=== PATIENT | female | born 1960 | race Caucasian/White ===

== ENCOUNTER → 2024-04-04 12:34 | Outpatient (REF) | payer BC, SELFPAY | LOC: WDC 12:34 | PROVIDERS: ATTENDING PHYSICIAN Physician Assistant Medical | DX: Z12.31 Encounter for screening mammogram for malignant neoplasm of breast (principal); Z78.0 Asymptomatic menopausal state | CPT/HCPCS: 77063; 77067 ==

== ENCOUNTER 2024-09-12 08:11 | Emergency (ER) | payer BC, SELFPAY ==
[2024-09-12 08:12] VITALS: BP 172/83
--- NOTE | 2024-09-12 08:49 | ED.GENMED ---
History of Present Illness
General
Chief Complaint: Musculo-Skeletal Complaint
Time Seen by Provider: 09/12/24 08:18
History of Present Illness
History of Present Illness:
64-year-old female with history of hypertension presenting to the emergency department with left ankle pain. Patient reports last evening she got up off of the couch and twisted her ankle, felt a pop. She has since had swelling of the lateral
aspect with pain. She has been able to bear weight. Denies numbness or tingling. Denies any additional injury. Has been taking ibuprofen. Denies additional acute medical complaints
Past History
Past History
ED Past Medical History: None
ED Past Surgical History: None
Social History
Tobacco: Non-smoker
Personal:
Living: with family
Employment: Employed
Phy Exam
Physical Exam
Physical Exam:
General: Well-appearing, no clinical signs of dehydration, nontoxic and in no acute distress
HEENT: protecting airway
Neck: appears supple
CV: Normal heart rate
Resp: No accessory muscle use, no increased work of breathing
Abd: no distension
Extremities: No obvious deformity to the left ankle with moderate swelling to the left malleoli with tenderness to palpation. Range of motion grossly intact. Distal sensation and pulses intact. No erythema or warmth.
Neuro: alert, no focal neurologic deficit
: deferred
Rectal: deferred
Psych: Normal affect
Skin: Intact
Course
Orders/Labs/Results
Orders:
Orders
09/12/24 08:15
CR Ankle - Left Min 3 Views Urgent
Comment:
Reason For Exam: injury
Vital Signs
Initial and Last Documented VS:
Initial Vital Signs
Temp Pulse Resp BP Pulse Ox
99.2 F 100 16 172/83 97
09/12/24 08:12 09/12/24 08:12 09/12/24 08:12 09/12/24 08:12 09/12/24 08:12
Last Documented Vital Signs
Temp Pulse Resp BP Pulse Ox
99.2 F 100 16 172/83 97
09/12/24 08:12 09/12/24 08:12 09/12/24 08:12 09/12/24 08:12 09/12/24 08:12
MDM/Problems Addressed
MDM/Problems Addressed:
64-year-old female with history of hypertension presenting to the emergency department for left ankle pain after rolling her ankle yesterday. Vital signs on arrival significant for mildly high blood pressure.
On exam patient is well-appearing, no acute distress or discomfort. Patient does have swelling to the lateral malleoli of the ankle with concern for ankle sprain versus fracture. Lower suspicion for malalignment. No neurovascular compromise. No
infectious findings. X-ray obtained, subtle avulsion fracture to the fibula. Will place in walking boot. Otherwise stable for discharge with outpatient orthopedic follow-up. Advised supportive therapy. Return precautions discussed and patient
verbalized understanding
*Critical Care Note
Total Time (30-74mins, 75-104mins- exclusive of procedures): Not Applicable
ED Attending Note
-
Portions of this chart may have been created with voice recognition software.� Occasional wrong word or��sound alike� substitutions may have occurred due to the inherent limitations of voice recognition software.
Discharge Plan
Departure
Patient Disposition: Home (Routine Discharge)
Date of Disposition: 09/12/24
Time of Disposition: 08:52
Patient with high blood pressure during this ER visit?: Yes
Condition: Good
Discharge Problem:
Avulsion fracture of distal end of fibula
Instructions: Ankle Fracture ED
Prescriptions:
No Action
atorvastatin 80 MG tablet
80 mg PO QPM 30 Days Qty: 30 0RF
nicotine 14 MG patch 24 hour
14 mg transdermal DAILY 30 Days Qty: 30 0RF
aspirin 81 MG tablet,delayed release (DR/EC)
81 mg PO DAILY 30 Days Qty: 30 0RF
amlodipine 2.5 MG tablet
2.5 mg PO DAILY 30 Days Qty: 30 0RF
Referrals:
Neha Munguia PA [Family Provider] -
Chivo Mcgarry MD [Active] - (fibula fracture)
Activity Restrictions/Additional Instructions:
You were seen in the emergency department for ankle pain
You were found to have an avulsion fracture to your left fibula. You were placed in a walking boot.
Please follow-up closely with your primary care physician.
Return to the emergency department for any worsening of your symptoms, or any development of chest pain, difficulty breathing, abdominal pain with persistent vomiting and inability to tolerate food or liquid by mouth (concern for dehydration),
weakness, numbness or tingling to your leg, redness or warmth to your leg, headache or confusion, fever greater than 100.4, or any additional symptoms that are concerning to you.
Thank you for choosing [facility].
Interventions
Interventions:
*Risk Screen - Suicide Last Done: 09/12/24 08:12
*General Assessment Last Done: 09/12/24 08:12
*Neglect/Abuse Screening Last Done: 09/12/24 08:12
ED- Fall Risk Assessment Last Done: 09/12/24 08:37
*ED COVID-19 Vaccine History Last Done: 09/12/24 08:12
ED-Musculoskeletal Assessment Last Done: 09/12/24 08:37
Discharge Date and Time
Print Language: BRUNEIAN
--- NOTE | 2024-09-12 09:26 | EDRN ---
Reviewed discharge instructions with patient. Verbalized understanding. Taken to lobby in wheelchair.
[2024-09-12 09:28] VITALS: BP 157/85
== END 2024-09-12 09:25 | disposition home or self-care (01) ==
LOC: EMR 08:11
PROVIDERS: EMERGENCY PHYSICIAN Student in an Organized Health Care Education/Training Program; FAMILY PHYSICIAN Physician Assistant Medical
DX: S82.832A Other fracture of upper and lower end of left fibula, initial encounter for closed fracture (principal); X50.1XXA Overexertion from prolonged static or awkward postures, initial encounter; I10 Essential (primary) hypertension
CPT/HCPCS: 99283; 73610

== ENCOUNTER → 2025-03-18 15:47 | Outpatient (REF) | payer BC, SELFPAY | LOC: RAD 15:47 | PROVIDERS: ATTENDING PHYSICIAN Physician Assistant Medical | DX: M79.672 Pain in left foot (principal) | CPT/HCPCS: 73630 ==

== ENCOUNTER → 2025-04-07 13:22 | Outpatient (REF) | payer BC, SELFPAY | LOC: WDC 13:22 | PROVIDERS: ATTENDING PHYSICIAN Physician Assistant Medical | DX: Z12.31 Encounter for screening mammogram for malignant neoplasm of breast (principal) | CPT/HCPCS: 77063; 77067 ==

== ENCOUNTER → 2025-04-21 09:23 | Outpatient (REF) | payer BC, SELFPAY | LOC: RCS 09:23 | PROVIDERS: ATTENDING PHYSICIAN Physician Assistant Medical | DX: R01.1 Cardiac murmur, unspecified (principal) | CPT/HCPCS: 93306 ==

== ENCOUNTER → 2025-04-22 08:58 | Outpatient (REF) | payer BC, SELFPAY | LOC: HWRAD 08:58 | PROVIDERS: ATTENDING PHYSICIAN Physician Assistant Medical | DX: Z87.891 Personal history of nicotine dependence (principal) | CPT/HCPCS: 71271 ==